=== PATIENT | female | born 1990 ===

== ENCOUNTER 2022-07-13 17:10 | Emergency (ER) | payer BC, MEDICAID ==
[2022-07-13 17:43] LABS: CHLORIDE,CL 103 mmol/L (98-107); SODIUM,NA 136 mmol/L (136-145)
[2022-07-13 17:49] LABS: ANION GAP 14.4 mmol/L (5-15); ESTIMATED GFR 130 mL/min (>=60)
[2022-07-13 18:01] LABS: PTT,PARTIAL THROMBOPLSTIN TIME 22.7 SEC (20.5-30.9)
== END 2022-07-13 18:22 | disposition short-term general hospital (02) ==
LOC: VM.ED 17:10
DX: O99.891 Other specified diseases and conditions complicating pregnancy (principal); R10.9 Unspecified abdominal pain; R51.9 Headache, unspecified
CPT/HCPCS: 80048; 81001; 85025; 85610; 85730; 87086; 99284; 99285; U0002